=== PATIENT | female | born 1985 | race Caucasian/White ===

== ENCOUNTER 2016-11-10 07:21 | Emergency (ER) | payer BC, OTHER ==
[2016-11-10] VITALS (7 sets, daily range): PULSE 62–82
--- NOTE | 2016-11-10 08:52 | PD ---
HPI Chief Complaint Vaginal bleeding Date Seen: Nov 10, 2016 Time Seen: 08:20 Travel History International Travel<30 Days: No Contact w/Intl Traveler<30Days: No Known Affected Area: No History of Present Illness HPI 31-year-old at 3839 weeks gestation experienced bright red vaginal bleeding this morning into the toilet after voiding. Patient had coitus last night followed by the bleeding this morning occasional intermittent contractions for the past week but no other , occasional at this time. Last examination she was 2-3 cm sometime last week patient's not feeling any painful contractions at this time although she does notice that her fundus occasionally becomes a bit firm. Patient is experiencing normal movement. Para: 2 : 3 History Past Medical History Medical History: Denies Significant Hx Obstetric History Obstetric History Spontaneous vaginal delivery 2 Past Surgical History Surgical History: No Previous Surgery Family History Family History: Negative Social History Alcohol Use: No Tobacco Use: No Substance Abuse: No Allergies-Medications (Allergen,Severity, Reaction): Coded Allergies: No Known Allergies (Verified Allergy, Severe, 10/24/05) Review of Systems Except as stated in HPI: all other systems reviewed are Neg Physical Exam Vital Signs Date Time Temp Pulse Resp B/P Pulse Ox O2 Delivery O2 Flow Rate FiO2 11/10/16 08:25 77 11/10/16 08:20 62 11/10/16 08:15 65 11/10/16 08:10 81 11/10/16 08:05 77 11/10/16 07:55 65 11/10/16 07:50 82 Narrative GENERAL: Well-nourished, well-developed patient. SKIN: Warm and dry. HEAD: Normocephalic and atraumatic. EYES: No scleral icterus. No injection or drainage. ENT: No nasal drainage noted. Mucous membranes pink. Airway patent. NECK: Supple, trachea midline. No JVD. CARDIOVASCULAR: Regular rate and rhythm without murmurs, gallops, or rubs. RESPIRATORY: Breath sounds equal bilaterally. No accessory muscle use. BREASTS: Bilateral exam showed no masses , no retractions, no nipple discharge. ABDOMEN/GI: Abdomen soft, non-tender, bowel sounds present, no rebound, no guarding Gravid to [-] weeks size Fundal Height: [37 -] GENITOURINARY: External Genitalia: intact and normal in appearance BUS glands: [Normal-] Cervix: [Posterior-] small amount of old blood is noted inside the vaginal vault no active bleeding at this time. Dilatation: [-2] Effacement: [-50] Station: [-High] Presentation: [-Vertex] Membranes: [intact] Uterine Contractions: [Irregular, occasional-] FHT's: Category: [1-] Baseline: [145-] Reactive: [Moderate-] Variability: [Moderate-] Decels: [-Absent] EXTREMITIES: No cyanosis or edema. BACK: Nontender without obvious deformity. No CVA tenderness. NEUROLOGICAL: Awake and alert. Motor and sensory grossly within normal limits. Five out of 5 muscle strength in all muscle groups. Normal speech. Data Data Vital Signs Reviewed: Yes Orders Vital Signs (Adult) .ON ADMISSION (11/10/16 07:57) ^ Labor Status (11/10/16 07:57) ^ Non Stress Test (11/10/16 07:57) ^ Hydration (11/10/16 07:57) Pamg-1 Test .ONCE (11/10/16 08:19) Urinalysis - C+S If Indicated (11/10/16 08:34) MDM Medical Record Reviewed: Yes Plan 31-year-old female at 3839 weeks gestation who is experiencing postcoital bleeding this morning. Bleeding seems to have resolved and there is no blood noted on examination but there is some bits of old blood in the vaginal vault still. Recommend the patient abstains from intercourse due to the softening of the cervix and the likely possibilities of repetitive bleeding. Category 1 heart rate tracing is noted Diagnosis Diagnosis: Primary Impression: 38 weeks gestation of Additional Impressions: PCB (post coital bleeding) Antepartum hemorrhage affecting intrauterine Disposition: DISCHARGE HOME Aurora Ralph MD Nov 10, 2016 08:52
== END 2016-11-10 09:24 | disposition home or self-care (01) ==
LOC: HOBED 07:21
DX: O46.8X3 Other antepartum hemorrhage, third trimester (principal); Z3A.38 38 weeks gestation of pregnancy
CPT/HCPCS: 59025

== ENCOUNTER 2016-11-16 05:26 | Inpatient (IN) | payer BC ==
[2016-11-16] VITALS (56 sets, daily range): BP systolic 89–131; BP diastolic 54–80; PULSE 59–105; RESP 16–20; TEMP 97.2–98.5
[~2016-11-16] VITALS: Ht 157.5 cm; Wt 83.5 kg
[2016-11-16] MEDS ORDERED: OXYTOCIN 30 UNITS-500ML PREMIX 500 ML ONE (05:42)
[2016-11-16] MEDS ORDERED: MINERAL OIL 10 ML VIAL TOPICAL PRN ×2 (05:45→08:30)
[2016-11-16] MEDS ORDERED: LIDOCAINE HCL 1% 50 ML VIAL INFIL PRN ×2 (05:45→08:30)
[2016-11-16] MEDS ORDERED: OXYTOCIN 30 UNITS 500ML PREMIX IV ONE (05:45)
[2016-11-16] MEDS ORDERED: CITRIC ACID-SODIUM CITRATE LIQ 30 ML UDC PO SCH ×2 (06:00→08:30)
[2016-11-16] MEDS ORDERED: LACTATED RINGER'S 1000 ML IV SCH (06:00)
[2016-11-16] MEDS ORDERED: NS 1000 ML IV PRN (06:00)
[2016-11-16] MEDS ORDERED: NS 500 ML BOLUS IV PRN (06:00)
[2016-11-16] MEDS ORDERED: LIDOCAINE HCL 1% 50 ML VIAL I-DERMAL PRN ×2 (06:00→08:30)
[2016-11-16] MEDS ORDERED: OXYTOCIN 30 UNITS/NS 500ML PREMIX IV SCH (06:00)
[2016-11-16] MEDS ORDERED: LACTATED RINGER'S 1000 ML BOLUS IV PRN (06:00)
[2016-11-16] MEDS ORDERED: ONDANSETRON HCL 4 MG/2 ML VIAL IV PRN (06:00)
[2016-11-16] MEDS ORDERED: PENICILLIN G POT 5,000,000 UNITS/NS 100 ML (Mini-Bag Plus) IV ONE ×2 (06:00)
[2016-11-16 06:30] LABS: BLOOD, URINE NEG (NEG); GLUCOSE,URINE NEG (NEG); KETONE, URINE NEG (NEG); NITRITE,URINE NEG (NEG); PH, URINE 6.5 (5.0-8.5); SQUAMOUS EPITHELIAL CELL URINE 2 /hpf (0-5); URINE COLOR YELLOW (YELLW/STRAW)
[2016-11-16 06:48] LABS: COMMENT (UR) CULT NOT INDICATED; CULTURE IF INDICATED CULT NOT INDICATED
[2016-11-16 06:56] LABS: AUTOMATED NEUTROPHIL # 6.9 TH/MM3 (1.8-7.7); BASOPHIL % 0.4 % (0.0-2.0); EOSINOPHIL # 0.3 TH/MM3 (0-0.4); EOSINOPHIL % 2.9 % (0.0-4.0); HEMATOCRIT 36.3 % (35.0-46.0); HEMO FLAGS DIFF FINAL; LYMPHOCYTE # 3.1 TH/MM3 (1.0-4.8); MEAN CORPUSCULAR HEMOGLOBIN 32.7 PG (27.0-34.0); MONO % 9.4 % (0.0-8.0); NEUT % 60.3 % (16.0-70.0); PLATELET COUNT 193 TH/MM3 (150-450); RED BLOOD COUNT 3.78 MIL/MM3 (4.00-5.30); RED CELL DISTRIBUTION WIDTH 12.9 % (11.6-17.2); WHITE BLOOD COUNT 11.4 TH/MM3 (4.0-11.0)
[2016-11-16] MEDS ORDERED: TRICTAB PO (07:14)
[2016-11-16] MEDS ORDERED: LACTATED RINGER'S 1000 ML INJ 1,000 ML IV PRN (08:19)
[2016-11-16] MEDS ORDERED: LACTATED RINGER'S 1000 ML INJ 1,000 ML IV SCH (08:19)
[2016-11-16] MEDS ORDERED: SODIUM CHLORID 0.9% 500 ML INJ 500 ML IV PRN (08:30)
[2016-11-16] MEDS ORDERED: OXYTOCIN 30 UNITS-500ML PREMIX 500 ML IV ONE (08:30)
--- NOTE | 2016-11-16 08:37 | HHI.HP ---
HPI Chief Complaint induction of labor at 39 weeks Date Seen: Nov 16, 2016 Time Seen: 08:30 Travel History International Travel<30 Days: No Contact w/Intl Traveler<30Days: No Known Affected Area: No History of Present Illness HPI doing well induction at 39 weeks Para: 2 : 4 History Past Medical History Medical History: Denies Significant Hx Obstetric History Obstetric History x2 Past Surgical History Narrative Surgical none Family History Family History: Negative Social History Alcohol Use: No Tobacco Use: No Substance Abuse: No Allergies-Medications (Allergen,Severity, Reaction): Coded Allergies: No Known Allergies (Verified Allergy, Severe, 10/24/05) Home Meds Reported Medications Vit-Ferrous Fumarate ()1 Tab Tab1 Tab PO DAILY #30 TAB Ref 0 11/16/16 Review of Systems Except as stated in HPI: all other systems reviewed are Neg Physical Exam Vital Signs Date Time Temp Pulse Resp B/P Pulse Ox O2 Delivery O2 Flow Rate FiO2 11/16/16 08:09 70 122/80 11/16/16 07:22 18 11/16/16 07:21 76 105/67 11/16/16 06:45 20 11/16/16 06:43 63 122/78 11/16/16 05:49 81 116/73 11/16/16 05:49 97.5 Narrative GENERAL: Well-nourished, well-developed patient. SKIN: Warm and dry. HEAD: Normocephalic and atraumatic. EYES: No scleral icterus. No injection or drainage. ENT: No nasal drainage noted. Mucous membranes pink. Airway patent. NECK: Supple, trachea midline. No JVD. CARDIOVASCULAR: Regular rate and rhythm without murmurs, gallops, or rubs. RESPIRATORY: Breath sounds equal bilaterally. No accessory muscle use. BREASTS: Bilateral exam showed no masses , no retractions, no nipple discharge. ABDOMEN/GI: Abdomen soft, non-tender, bowel sounds present, no rebound, no guarding Gravid to [-] weeks size Fundal Height: [-] GENITOURINARY: External Genitalia: intact and normal in appearance BUS glands: [-] Cervix: [-] Dilatation: [-] Effacement: [-] Station: [-] Presentation: [-] Membranes: [intact or ruptured] Uterine Contractions: [-] FHT's: Category: [-] Baseline: [-] Reactive: [-] Variability: [-] Decels: [-] EXTREMITIES: No cyanosis or edema. BACK: Nontender without obvious deformity. No CVA tenderness. NEUROLOGICAL: Awake and alert. Motor and sensory grossly within normal limits. Five out of 5 muscle strength in all muscle groups. Normal speech. Data Data Vital Signs Reviewed: Yes Orders ^ Non Stress Test (11/16/16 05:37) Response To Medication .Post New Med Administration, Reaction (11/16/16 05:37) ^ Discontinue Medication (11/16/16 05:37) Admit To Inpatient (11/16/16 ) Vital Signs (Adult) .Per protocol (11/16/16 05:38) Activity Oob Ad Julienne (11/16/16 05:38) Heart (11/16/16 05:38) Amnioinfusion (11/16/16 05:38) Urinary Catheter Management .ONCE (11/16/16 05:38) Diet Liquid (11/16/16 Breakfast) Complete Blood Count With Diff (11/16/16 05:38) Hold Clot (11/16/16 05:38) Abo/Rh Blood Type (11/16/16 05:38) Urinalysis - C+S If Indicated (11/16/16 05:38) Resp Oxygen Non Rebreathe Mask (11/16/16 ) ^ Epidural / Intrathecal Infus (11/16/16 05:38) Oxytocin 30 Units-500ml Premix (Pitocin (11/16/16 05:42) Lactated Ringer's 1000 Ml Inj (Lr 1000 M (11/16/16 06:00) Lactated Ringer's 1000 Ml Inj (Lr 1000 M (11/16/16 06:00) Sodium Chlorid 0.9% 500 Ml Inj (Ns 500 M (11/16/16 06:00) Sodium Chlor 0.9% 1000 Ml Inj (Ns 1000 M (11/16/16 06:00) Lidocaine 1% Inj (50 Ml) (Xylocaine 1% I (11/16/16 06:00) Citric Acid-Sodium Citrate Liq (Bicitra (11/16/16 06:00) Ondansetron Inj (Zofran Inj) (11/16/16 06:00) Fentanyl Inj (Fentanyl Inj) (11/16/16 05:45) Fentanyl Inj (Fentanyl Inj) (11/16/16 05:45) Penicillin G Potassium Inj (Pfizerpen-G (11/16/16 06:00) Penicillin G Potassium Inj (Pfizerpen-G (11/16/16 10:00) Oxytocin 30 Units-500ml Premix (Pitocin (11/16/16 05:45) Lidocaine 1% Inj (50 Ml) (Xylocaine 1% I (11/16/16 05:45) Light Mineral Oil (Muri-Lube Oil) (11/16/16 05:45) Oxytocin 30 Units-500ml Premix (Pitocin (11/16/16 06:00) Admit To Inpatient (11/16/16 ) Code Status (11/16/16 08:19) Vital Signs (Adult) .Per protocol (11/16/16 08:19) Heart (11/16/16 08:19) Amnioinfusion (11/16/16 08:19) Urinary Catheter Management .ONCE (11/16/16 08:19) Lactated Ringer's 1000 Ml Inj (Lr 1000 M (11/16/16 08:19) Lactated Ringer's 1000 Ml Inj (Lr 1000 M (11/16/16 08:19) Sodium Chlorid 0.9% 500 Ml Inj (Ns 500 M (11/16/16 08:30) Sodium Chlor 0.9% 1000 Ml Inj (Ns 1000 M (11/16/16 08:39) Lidocaine 1% Inj (50 Ml) (Xylocaine 1% I (11/16/16 08:30) Citric Acid-Sodium Citrate Liq (Bicitra (11/16/16 08:30) Fentanyl Inj (Fentanyl Inj) (11/16/16 08:30) Fentanyl Inj (Fentanyl Inj) (11/16/16 08:30) Resp Oxygen Non Rebreathe Mask (11/16/16 ) ^ Epidural / Intrathecal Infus (11/16/16 08:19) Oxytocin 30 Units-500ml Premix (Pitocin (11/16/16 08:30) Lidocaine 1% Inj (50 Ml) (Xylocaine 1% I (11/16/16 08:30) Light Mineral Oil (Muri-Lube Oil) (11/16/16 08:30) Inpatient Certification (11/16/16 ) Labs Laboratory Tests Test 11/16/16 11/16/16 05:45 06:10 Urine Color YELLOW Urine Turbidity CLEAR Urine pH 6.5 Urine Specific [place] 1.017 Urine Protein NEG Urine Glucose (UA) NEG Urine Ketones NEG Urine Occult Blood NEG Urine Nitrite NEG Urine Bilirubin NEG Urine Urobilinogen LESS THAN 2.0 Urine Leukocyte Esterase SMALL Urine RBC LESS THAN 1 Urine WBC 1 Urine Squamous Epithelial 2 Cells Microscopic Urinalysis Comment CULT NOT INDICATED White Blood Count 11.4 Red Blood Count 3.78 Hemoglobin 12.3 Hematocrit 36.3 Mean Corpuscular Volume 96.0 Mean Corpuscular Hemoglobin 32.7 Mean Corpuscular Hemoglobin 34.0 Concent Red Cell Distribution Width 12.9 Platelet Count 193 Mean Platelet Volume 9.0 Neutrophils (%) (Auto) 60.3 Lymphocytes (%) (Auto) 27.0 Monocytes (%) (Auto) 9.4 Eosinophils (%) (Auto) 2.9 Basophils (%) (Auto) 0.4 Neutrophils # (Auto) 6.9 Lymphocytes # (Auto) 3.1 Monocytes # (Auto) 1.1 Eosinophils # (Auto) 0.3 Basophils # (Auto) 0.0 CBC Comment DIFF FINAL Differential Comment Blood Type A NEGATIVE Band and Hold HOLD CLOT IN BB Assessment/Plan Problem List: (1) 39 weeks gestation of Duncan Stephens MD Nov 16, 2016 08:37
[2016-11-16] MEDS ORDERED: SODIUM CHLOR 0.9% 1000 ML INJ 1,000 ML IV PRN (08:39)
--- NOTE | 2016-11-16 09:14 | PD.LABORPN ---
Subjective Subjective doing well Objective Vital Signs Vital Signs Date Time Temp Pulse Resp B/P Pulse Ox O2 Delivery O2 Flow Rate FiO2 11/16/16 08:09 70 122/80 11/16/16 07:22 18 11/16/16 07:21 76 105/67 11/16/16 06:45 20 11/16/16 06:43 63 122/78 11/16/16 05:49 81 116/73 11/16/16 05:49 97.5 Objective Pelvic Exam: Cervix: [-] Dilatation: 5 Effacement: 90 Station: [-] Presentation: vtx Membranes: ruptured Uterine Contractions: 2-3 FHT's: Category: 1 Baseline: [-] Reactive: [-] Variability: [-] Decels: [-] Assessment/Plan Problem List: (1) 39 weeks gestation of Duncan Stephens MD Nov 16, 2016 09:14
[2016-11-16] MEDS ORDERED: fentaNYL 2MCG-BUPIV 0.125% INJ 100 ML ONE (09:22)
[2016-11-16] MEDS: PENICILLIN G POT 2,500,000 UNITS/NS 100 ML IV SCH ×4 (10:22→13:59)
[2016-11-16] MEDS ORDERED: DO NOT ADMINISTER ANTICOAGULANTS PRN (12:00)
[2016-11-16] MEDS ORDERED: fentaNYL 2MCG-BUPIV 0.125% 100 ML EPIDURAL SCH (12:00)
[2016-11-16] MEDS ORDERED: NO SYSTEM NARCOTICS PRN (12:00)
[2016-11-16] MEDS ORDERED: ePHEDrine/NS 25 MG/5 ML SYR IV PRN (12:00)
--- NOTE | 2016-11-16 14:55 | PD.OB.DELI ---
Delivery Date: Nov 16, 2016 Anesthesia: Epidural Episiotomy: Left mediolateral Vaginal Delivery: Normal, Spontaneous Presentation: Occiput anterior Nuchal Cord: x1 Delayed cord clamping (45 sec): No Shoulder Dystocia: Suprapubic pressure given, Marla maneuver done Infant: Female, Single One Minute : 2 Five Minute : 8 Placenta: Spontaneous delivery, Intact, 3 vessel cord Laceration: 2 deg Repair: Chromic running (shoulder dystocia relieved with short suprapubic and marla) Duncan Stephens MD Nov 16, 2016 14:55
[2016-11-16] MEDS ORDERED: SODIUM CHLORIDE 0.9% FLUSH 10 ML FLUSH IV FLUSH PRN (15:00)
[2016-11-16] MEDS ORDERED: BENZOCAINE 20% TOPICAL SPRAY 60 ML CAN TOPICAL PRN (15:00)
[2016-11-16] MEDS ORDERED: ALUMINUM/MAGNESIUM/SIMETH 30 ML CUP PO PRN (15:00)
[2016-11-16] MEDS ORDERED: oxyCODONE/ACETAMINOPHEN 5 MG/325 MG TAB PO PRN ×2 (15:00)
[2016-11-16] MEDS ORDERED: ZOLPIDEM TARTRATE 5 MG TAB PO PRN (15:00)
[2016-11-16] MEDS ORDERED: ACETAMINOPHEN 325 MG TAB PO PRN (15:00)
[2016-11-16] MEDS ORDERED: WITCH HAZEL 50%/GLYCERIN 12.5% 40 PAD JAR TOPICAL PRN (15:00)
[2016-11-16] MEDS ORDERED: ONDANSETRON ODT 4 MG TAB PO PRN (15:00)
[2016-11-16] MEDS ORDERED: MEASLES, MUMPS, RUBELLA VACCINE 0.5 ML VIAL SQ ONE (16:00)
[2016-11-16] MEDS ORDERED: DIPHTH/TETANUS/ACEL PERTUSSIS (BOOSTER) 0.5 ML VIAL/PFS IM ONE (16:00)
[2016-11-16] MEDS: IBUPROFEN 600 MG TAB PO PRN ×2 (17:20→23:12)
[2016-11-16] MEDS: SODIUM CHLORIDE 0.9% FLUSH 10 ML FLUSH IV FLUSH SCH (21:00)
[2016-11-16] MEDS: DOCUSATE SODIUM 50 MG/SENNA 8.6 MG TAB PO PRN (23:11)
[2016-11-17] MEDS: IBUPROFEN 600 MG TAB PO PRN ×3 (05:55→19:33)
--- NOTE | 2016-11-17 07:35 | HHI.OB ---
Subjective Post Day: 1 Remarks doing well. She is breast feeding Objective Vitals/I&O Vital Signs Date Time Temp Pulse Resp B/P Pulse Ox O2 Delivery O2 Flow Rate FiO2 11/16/16 20:10 98.1 70 18 105/56 11/16/16 17:36 98.5 71 18 130/71 11/16/16 17:00 88 124/75 11/16/16 16:45 101 131/62 11/16/16 16:30 85 102/75 11/16/16 16:16 73 125/68 11/16/16 16:15 16 11/16/16 16:00 70 120/69 11/16/16 15:45 81 115/74 11/16/16 15:31 79 111/70 11/16/16 15:30 18 11/16/16 15:15 81 119/72 11/16/16 15:10 97.6 11/16/16 15:07 18 11/16/16 15:00 79 129/66 11/16/16 14:47 87 120/58 11/16/16 14:31 68 131/65 11/16/16 14:00 72 111/70 11/16/16 13:30 97.7 11/16/16 13:30 65 118/79 11/16/16 13:00 64 107/67 11/16/16 12:47 18 11/16/16 12:30 68 114/70 11/16/16 12:00 61 11/16/16 12:00 106/64 11/16/16 11:55 68 11/16/16 11:50 68 11/16/16 11:45 70 11/16/16 11:40 73 11/16/16 11:35 74 11/16/16 11:30 86 107/75 11/16/16 11:27 66 120/71 11/16/16 11:25 88 11/16/16 11:20 65 11/16/16 11:15 82 11/16/16 11:00 97.5 11/16/16 11:00 78 11/16/16 10:58 66 111/63 11/16/16 10:55 82 11/16/16 10:50 83 11/16/16 10:45 74 11/16/16 10:00 70 114/54 11/16/16 09:56 85 105/60 11/16/16 09:56 85 105/60 11/16/16 09:55 81 11/16/16 09:55 81 11/16/16 09:50 86 118/62 11/16/16 09:46 75 112/57 11/16/16 09:45 77 11/16/16 09:41 105 89/55 11/16/16 09:40 68 11/16/16 09:36 63 115/63 11/16/16 09:35 69 11/16/16 09:31 67 120/74 11/16/16 09:17 59 118/70 11/16/16 09:15 97.2 11/16/16 08:09 70 122/80 Objective Remarks GENERAL: Well-nourished, well-developed patient. ABDOMEN/GI: Abdomen soft, non-tender. Fundus: Firm, non-tender at umbilicus. GENITOURINARY: Light to moderate bleeding. EXTREMITIES: No cyanosis or edema, non-tender, without signs of DVT. Medications and IVs Current Medications Medications (Trade) Dose Ordered Sig/Kelly Route Start Time Stop Time Status Last Admin (Zofran Inj) 4 mg Q6H PRN IV 11/16/16 06:00 (NS Flush) 2 ml BID IV FLUSH 11/16/16 21:00 (NS Flush) 2 ml UNSCH PRN IV FLUSH 11/16/16 15:00 (Tylenol) 650 mg Q4H PRN PO 11/16/16 15:00 (Motrin) 600 mg Q6H PRN PO 11/16/16 15:00 11/17/16 05:55 (Percocet 5-325 Mg) 1 tab Q4H PRN PO 11/16/16 15:00 (Percocet 5-325 Mg) 2 tab Q4H PRN PO 11/16/16 15:00 (Americaine 20% Top Spr) 1 spray Q4H PRN TOPICAL 11/16/16 15:00 11/16/16 17:54 (Tucks Pads) 1 applic QID PRN TOPICAL 11/16/16 15:00 11/16/16 17:54 (Naomi-Colace) 2 tab Q12H PRN PO 11/16/16 15:00 11/16/16 23:11 (Ambien) 5 mg HS PRN PO 11/16/16 15:00 (Mag-Al Plus Susp Liq) 15 ml Q8H PRN PO 11/16/16 15:00 (Zofran Odt) 4 mg Q6H PRN PO 11/16/16 15:00 Assessment/Plan Problem List: (1) 39 weeks gestation of (2) Spontaneous vaginal delivery Discharge Planning doing well Duncan Stephens MD Nov 17, 2016 07:35
[2016-11-17] MEDS ORDERED: OXYC1TAB63 PO ×2 (07:37→07:38)
--- NOTE | 2016-11-17 07:37 | HHI.DCPOC ---
Discharge Care Plan Diagnosis: (1) Spontaneous vaginal delivery Report Symptoms to Your Doctor -Temperature above 100.5 degrees -Redness, of incision or excessive or foul smelling drainage -Unusual pain or calf pain -Increased vaginal bleeding -Painful or difficulty urinating -Feelings of extreme sadness or anxiety after 2 weeks Goals to Promote Your Health * To prevent worsening of your condition and complications * To maintain your health at the optimal level Directions to Meet Your Goals Take your medications as prescribed Follow your dietary instruction Follow activity as directed Ensure plenty of rest for recovery Drink fluids for hydration Keep your appointments as scheduled Take your immunizations and boosters as scheduled If your symptoms worsen call your PCP, if no PCP go to Urgent Care Center or Emergency Room Smoking is Dangerous to Your Health. Avoid second hand smoke Call the 24-hour crisis hotline for domestic abuse at Duncan Stephens MD Nov 17, 2016 07:37
[2016-11-17 08:53] VITALS: BP 114/72; PULSE 70; RESP 16; TEMP 97.9
[2016-11-17] MEDS: SODIUM CHLORIDE 0.9% FLUSH 10 ML FLUSH IV FLUSH SCH (09:00)
[2016-11-17] MEDS: DOCUSATE SODIUM 50 MG/SENNA 8.6 MG TAB PO PRN (13:23)
[2016-11-17 20:00] VITALS: BP 111/71; PULSE 75; RESP 18; TEMP 98
[2016-11-18] MEDS: IBUPROFEN 600 MG TAB PO PRN (01:34)
[2016-11-18 09:55] VITALS: BP 116/67; PULSE 75; RESP 18; TEMP 99.1
--- NOTE | 2016-11-18 12:51 | HHI.DS ---
Admission Date Nov 16, 2016 at 05:26 Discharge Date: Nov 18, 2016 Admitting Diagnosis Diagnosis: (1) Spontaneous vaginal delivery Diagnosis: Principal Delivery Date: Nov 16, 2016 Vaginal Delivery: Normal : Female, Single Brief History doing well induction at 39 weeks Hospital Course pt was admitted, had an . by ppd 2 pt was voiding, passing gas with good pain control and stable for d/c home. Pt Condition on Discharge: Stable Discharge Disposition: Discharge Home Discharge Instructions Diet Instructions: As Tolerated, No Restrictions Additional Diet Instructions: Drink at least 8 - 16 oz bottles of water a day Activities You Can Perform: Shower Only-No Bath, Sitz Bath Activities to Avoid: Lifting/Bending, Sexual Activity Additional Activity Instruc.: No driving until off pain medications Do not lift anything heavier than your baby in an infant carrier Joo Martinez MD Nov 18, 2016 12:51
== END 2016-11-18 13:07 | disposition home or self-care (01) | DRG 775 ==
LOC: H2EB 05:26 → H1EA 17:28
PROVIDERS: ADMIT Obstetrics & Gynecology; ATTEND Obstetrics & Gynecology
PROC: 10E0XZZ Delivery of Products of Conception, External Approach (ICD-10-PCS; principal; 2016-11-16)
PROC: 0KQM0ZZ Repair Perineum Muscle, Open Approach (ICD-10-PCS; 2016-11-16)
PROC: 3E033VJ Introduction of Other Hormone into Peripheral Vein, Percutaneous Approach (ICD-10-PCS; 2016-11-16)
PROC: 0W8NXZZ Division of Female Perineum, External Approach (ICD-10-PCS; 2016-11-16)
DX: O66.0 Obstructed labor due to shoulder dystocia (principal); O69.81X0 Labor and delivery complicated by cord around neck, without compression, not applicable or unspecified; Z37.0 Single live birth; Z3A.39 39 weeks gestation of pregnancy; O70.1 Second degree perineal laceration during delivery
CPT/HCPCS: 59025; 81001; 85025; 85461; 86850; 86900; 86901; 90384; 90715; J2540; J2590; J2790; J7120